=== PATIENT | female | born 1970 | race African-American/Black ===

== ENCOUNTER 2017-03-03 16:09 | Emergency (ER) | payer MEDICAID ==
[~2017-03-03] VITALS: Ht 165.1 cm; Wt 100.0 kg
[2017-03-03] MEDS ORDERED: KETOROLAC 30MG/ML VIAL IM ONE (22:15)
[2017-03-03] MEDS ORDERED: ALBUTEROL (0.083%) 2.5MG/3ML NEB HHN ONE (22:15)
[2017-03-03 22:37] VITALS: BP 105/66
[2017-03-04] MEDS ORDERED: AMOXICILLIN/POTASSIUM CLAVULANATE 875/125MG TAB PO ONE
== END 2017-03-04 00:16 | disposition home or self-care (01) ==
LOC: ER 17:37
DX: J32.0 Chronic maxillary sinusitis (principal)
CPT/HCPCS: 71045; 87070; 87430; 87804; 94640; 96372; 99285; J1885; J7611